=== PATIENT | male | born 1950 | race Caucasian/White ===

== ENCOUNTER → 2016-12-08 | Day surgery (SDC) | payer MEDICARE, OTHER ==
[~2016-12-08] VITALS: Ht 167.6 cm; Wt 98.2 kg
[2016-12-08 07:26] LABS: HCT 42.2 % (42.0-52.0); HGB 14.5 g/dl (13.2-18.0); MCH 30.7 pg (25.0-31.0); MCHC 34.4 g/dL (32.0-36.0); MCV 89.4 fL (78.0-100.0); MPV 9.2 fL (6.0-9.5); RBC 4.72 M/uL (4.70-6.00); RDW 12.6 % (11.5-14.0)
[2016-12-08 08:31] LABS: CREATININE 0.7 mg/dL (0.7-1.2)
== END | disposition home or self-care (01) ==
LOC: FAS 06:47
PROVIDERS: Anesthesiology; Legal Medicine
DX: G56.01 Carpal tunnel syndrome, right upper limb (principal); G56.11 Other lesions of median nerve, right upper limb; G25.81 Restless legs syndrome; I10 Essential (primary) hypertension; F41.9 Anxiety disorder, unspecified; K21.9 Gastro-esophageal reflux disease without esophagitis; E78.00 Pure hypercholesterolemia, unspecified; Z87.891 Personal history of nicotine dependence; Z95.5 Presence of coronary angioplasty implant and graft; Z90.89 Acquired absence of other organs; Z88.8 Allergy status to other drugs, medicaments and biological substances; Z91.030 Bee allergy status; Z79.82 Long term (current) use of aspirin; Z79.899 Other long term (current) drug therapy; Z98.890 Other specified postprocedural states
CPT/HCPCS: 36415; 80048; J0690; J1885; J2405; J2704; J2795; J3010